=== PATIENT | male | born 1940 | race Caucasian/White ===

== ENCOUNTER → 2020-05-13 | Outpatient (CLI) | payer MEDICARE, OTHER ==
--- NOTE | 2020-05-13 09:44 | Diagnostic Imaging Report ---
INDICATION: Fall and right shoulder pain. Time of exam 9:08 AM 3 views of the right shoulder were obtained. The glenohumeral acromioclavicular alignment are normal. No fracture or dislocation is seen. There is slight narrowing of acromiohumeral space. This can be seen with rotator cuff arthropathy. No other abnormalities are detected. IMPRESSION: Questionable rotator cuff arthropathy. No acute bony abnormality is detected. Dictated by: Dictated on workstation # [id number]
--- NOTE | 2020-05-13 09:45 | Diagnostic Imaging Report ---
INDICATION: Fall and neck pain. Time of exam 9:04 AM A lateral view is suboptimal as it is not a true lateral. This does compromise evaluation. There appears to be a multilevel degenerative disc disease with variable disc space narrowing and marginal spurring. There is multilevel facet arthropathy. Odontoid appears to be intact. Prevertebral tissues are normal. IMPRESSION: Suboptimal lateral view, limiting evaluation. There is generalized cervical spondylosis. No acute bony abnormality is detected. Dictated by: Dictated on workstation # [id number]
== END ==
LOC: RAD FS 08:51
PROVIDERS: ATTEND Nurse Practitioner
DX: M47.812 Spondylosis without myelopathy or radiculopathy, cervical region (principal); M25.511 Pain in right shoulder; W19.XXXA Unspecified fall, initial encounter
CPT/HCPCS: 72040; 73030